=== PATIENT | female | born 1955 | race African-American/Black ===

== ENCOUNTER 2016-12-07 19:51 | Emergency (ER) ==
[2016-12-07] MEDS ORDERED: TYLENOL PO ONE (20:27)
[2016-12-07] MEDS ORDERED: BICILLIN L-A IM ONE (21:06)
[2016-12-07] MEDS ORDERED: TYLENOL WITH CODEINE #3 PO ONE (21:06)
--- NOTE | 2016-12-07 21:10 | PROVIDER DOCUMENTATION ---
HPI-General Adult - General Chief Complaint: Sore Throat Stated Complaint: SORTE THROAT Time Seen by Provider: 12/07/16 21:01 Source: patient Allergies/Adverse Reactions: Patient Allergies Allergy/AdvReac Type Severity Reaction Status Date / Time No Known Allergies Allergy Verified 09/08/16 19:23 Home Medications: Home Medication List Medication Instructions Recorded Confirmed Last Taken Type Fluticasone/Salmeterol [Advair 1 puff INH BID 11/19/15 09/08/16 09/08/16 09:00 History 500-50 Diskus] Furosemide [Lasix] 40 mg PO DAILY 11/19/15 09/08/16 09/08/16 08:00 History Levothyroxine [Synthroid] 100 microgm PO DAILY #0 tablet 12/02/15 09/08/1609/08 08:00 Rx Metformin [Glucophage] 500 mg PO BID CC #180 tablet 12/02/15 09/08/16 09/08/16 08:00 Rx Clonidine HCl 0.1 mg PO TID PRN #30 tablet 09/08/16 Unknown Rx - History of Present Illness -Gen Adult Nature of Presenting Problems: 61 Y/O F presents to ED with a Sore throat. Pt states that she's had an onset of fever, cough, and throat pain yesterday. Location of Pain/Injury: reports: mouth Pain Radiation: reports: no radiation Quality of Pain: reports: aching Severity: reports: moderate Onset/Duration: reports: 24 hours ago Timing: reports: still present Context/Activities at Onset: reports: none Associated Symptoms: reports: cough, fever/chills. denies: nausea, vomiting Review of Systems - Adult - REVIEW OF SYSTEMS - ADULT Constitutional: reports: fever. denies: chills Eyes: reports: no symptoms reported Ears, Nose, Mouth & Throat: reports: throat pain Cardiovascular: denies: chest pain Respiratory: reports: cough. denies: shortness of breath Gastrointestinal: denies: abdominal pain, diarrhea, nausea, vomiting Genitourinary: reports: no symptoms reported Musculoskeletal: reports: no symptoms reported Integumentary: reports: no symptoms reported Neurological: reports: no symptoms reported Psychiatric: reports: no symptoms reported Endocrine: reports: no symptoms reported Hematologic/Lymphatic: reports: no symptoms reported Allergic/Immunologic: reports: no symptoms reported All Other Systems: Reviewed and Negative Past History - Adult - PAST MEDICAL HISTORY-ADULT Review of Records: reports: Old Records Reviewed, Nursing Assessment Review, Medications Reviewed, Social history reviewed & non-contributory. Cardiovascular: reports: HTN Respiratory: reports: asthma Musculoskeletal: reports: arthritis Endocrine/Immune: reports: thyroid disorder (hypo) - PRIOR SURGERIES/PROCEDURES Surgical/Procedure History: reports: hernia repair, orthopedic (extremity) ( rigth wrist) - IMMUNIZATION STATUS Childhood Immunizations: See Nurse Assessment Flu Vaccine: See Nurse Assessment - SOCIAL HISTORY Smoking: non-smoker Substance Use: none/never Alcohol Use Frequency: never Living Situation: family Physical Exam-General - PHYSICAL EXAM-ADULT Initial Vital Signs Reviewed: Yes - CONSTITUTIONAL General Appearance: appears well, alert, no apparent distress - EYES Eyes: PERRL/EOMI, pink conjunctivae, fundi clear, no AV nicking - HEAD, EARS, NOSE, MOUTH & THROAT HENMT: normocephalic/atraumatic, moist mucous membranes, TMs normal, pharyngeal erythema. negative: tonsillar exudate - NECK Neck: non-tender, full range of motion, supple, normal inspection - RESPIRATORY Respiratory: chest non-tender, lungs clear, normal breath sounds - CARDIOVASCULAR Cardiovascular: normal peripheral pulses, regular rate, rhythm - GASTROINTESTINAL (ABDOMEN) Abdominal Exam: normal bowel sounds, non tender, soft - LYMPHATIC Lymphatic: no adenopathy - MUSCULOSKELETAL Back Exam: normal inspection, no CVA tenderness, no vertebral tenderness Extremity: normal range of motion, non-tender, normal gait - SKIN Integumentary: normal color, normal turgor, warm/dry - NEUROLOGIC Neurologic: ball ender II-XII nml as tested - PSYCHIATRIC Psych/Mental Status: normal mood/affect, normal thought content, normal thought process, oriented x 3 Progress - PLAN OF CARE/RESULTS Progress/Plan/Lab Results: Laboratory Tests 12/07/16 12/07/16 20:30 20:30 Influenza A (Rapid) NEGATIVE Influenza B (Rapid) NEGATIVE Group A Strep Rapid POSITIVE A Orders Category Date Time Status DIRECT [DIRECT STREP PL] Stat Lab 12/07/16 20:30 Completed Flu [INFLUENZA SCREEN PL] Stat Lab 12/07/16 20:30 Completed Acetaminophen [Tylenol] Med 12/07/16 20:27 Discontinued 1,000 mg PO NOW ONE Acetaminophen with Codeine [Tylenol with Codeine #3] Med 12/07/16 21:06 Discontinued 1 each PO NOW ONE Penicillin G Benzathine [Bicillin l-A] Med 12/07/16 21:06 Discontinued 1,200,000 unit IM NOW ONE Vital Signs - 24 hr 12/07/16 20:21 Temperature 101.8 F H Pulse Rate 104 H Respiratory 20 Rate Blood Pressure 106/85 O2 Sat by Pulse 97 Oximetry Departure - Departure Time of Disposition Order: 21:08 DIAGNOSIS: Strep pharyngitis Disposition: HOME 01 Certified Medical Emergency: Emergent Condition: Stable Additional Instructions: ED Follow Up Instructions: You have been treated by a care provider in the Emergency Department. These instructions are being provided to you so you can have an understanding of how to care for yourself upon discharge. Upon discharge from the Emergency Department, you are responsible for making arrangements for follow-up care by a physician of your choice. Take all prescribed medications as directed. Return to the Emergency Department immediately for any new or worsening symptoms. You may call the Physician Referral phone number at [phone] to obtain a list of Physicians who are taking new patients. Attestation - Scribe Verification/Attestation Scribe:: Mena Bautista Acting as Scribe for:: Narciso Springer Scribe documention review:: This chart was documented by a scribe and accurately reflects the service the provider performed and the decisions made by the provider.
[2016-12-07 21:20] VITALS: BP 98/53
== END 2016-12-07 21:25 | disposition home or self-care (01) ==
LOC: P.ED 19:51
DX: J02.0 Streptococcal pharyngitis (principal); R50.9 Fever, unspecified; R05 Cough; I10 Essential (primary) hypertension; M19.90 Unspecified osteoarthritis, unspecified site; J45.909 Unspecified asthma, uncomplicated; E03.9 Hypothyroidism, unspecified; Z79.51 Long term (current) use of inhaled steroids; Z79.899 Other long term (current) drug therapy
CPT/HCPCS: 87430; 87804; J0561

== ENCOUNTER 2019-06-19 05:08 | Day surgery (SDC) ==
[2019-06-14 10:45] LABS: HEMATOCRIT 35.6 % (37.0-47.0); HEMOGLOBIN 11.8 g/dL (12.0-16.0); MCH 30.1 PG (27-31); MCHC 33.1 g/dL (33-37); MCV 90.8 FL (81-99); RBC 3.92 XMIL (4.2-5.4); RDW 13.1 % (11.5-14.5); WBC 6.59 X1000 (4.8-10.8)
[2019-06-14 10:46] LABS: BASO# 0.02 X1000 (0.0-0.2); BASO% 0.3 % (0.0-0.8); EOS# 0.09 X1000 (0.0-0.7); EOS% 1.4 % (0.0-10.0); LYMPH# 2.17 X1000 (1.2-3.4); LYMPH% 32.9 % (20.5-51.1); MONO% 4.6 % (1.7-9.3); MPV 9.8 FL (7.4-10.4); NEUT# 4.01 X1000 (1.4-6.5); NEUT% 60.8 % (42.2-75.2); PLT 316 X1000 (130-400)
[2019-06-14 11:08] LABS: AGAP 14; BUN 37 mg/dL (8-22); CALCIUM 9.9 mg/dL (8.8-10.2); CHLORIDE 96 mmol/L (98-107); COSMO 288; CREATININE 0.9 mg/dL (0.5-0.9); ESTIMATED GFR > 60; GLUCOSE 96 mg/dL (70-104); POTASSIUM 3.9 mmol/L (3.5-5.1); SODIUM 140 mmol/L (136-145); TCO2 30 mmol/L (25-35)
[2019-06-19] MEDS ORDERED: PEPCID ONE (06:23)
[2019-06-19] MEDS ORDERED: KEFZOL 1 GM/D5W 1 GM/50 ML IVPB ONE (06:24)
[2019-06-19] MEDS ORDERED: LR 1,000 ML ONE (06:24)
[2019-06-19] MEDS ORDERED: DIPRIVAN 1% ONE (07:36)
[2019-06-19] MEDS ORDERED: VERSED ONE (07:36)
[2019-06-19] MEDS ORDERED: FENTANYL ONE (07:36)
[2019-06-19] MEDS ORDERED: XYLOCAINE-MPF 2% ONE (07:36)
[2019-06-19] MEDS ORDERED: ZOFRAN ONE (07:36)
[2019-06-19] MEDS ORDERED: ROBINUL ONE (07:36)
[2019-06-19] MEDS ORDERED: DECADRON ONE (07:36)
[2019-06-19] MEDS ORDERED: METHYLENE BLUE 0.5% ONE (08:14)
[2019-06-19] MEDS ORDERED: DILAUDID ONE (10:22)
[2019-06-19] MEDS ORDERED: NORCO-10 ONE (10:49)
[2019-06-19] MEDS ORDERED: MORPHINE IV PRN (11:56)
[2019-06-19] MEDS ORDERED: PHENERGAN IM PRN (12:00)
[2019-06-19] MEDS ORDERED: NORCO-10 PO PRN (12:00)
[2019-06-19] MEDS: TORADOL IV SCH ×2 (12:22→21:02)
--- NOTE | 2019-06-19 14:44 | OPERATIVE NOTE ---
PROCEDURE DATE: 06/19/2019 PREOPERATIVE DIAGNOSIS: Multifocal right breast cancer, upper outer quadrant. POSTOPERATIVE DIAGNOSIS: Multifocal right breast cancer, upper outer quadrant. PRINCIPAL PROCEDURE: Right modified radical mastectomy. SURGEON: Asiya Damon M.D. ANESTHESIA: General. ESTIMATED BLOOD LOSS: 75 mL. DRAINS: Two #10 flat Riky-Mackey drains, one within the right axilla, and one under the flaps, right chest. INDICATIONS: Ms. Elizabeth Shields is a 63-year-old, morbidly obese, black female, patient of Dr. Fam Rodriguez and Andre. She was diagnosed with a large multifocal upper outer quadrant right breast cancer in December of this year. She was initially treated with neoadjuvant chemotherapy, and now presents for surgery after good response from her chemotherapy. We have chosen a mastectomy with sentinel lymph node biopsy. FINDINGS: We did a complete right breast mastectomy. We preserved her Port-A-Cath in the upper medial right chest. We used blue dye, and she was injected by Nuclear Medicine for identification of sentinel lymph node, but there were very little counts in the right axilla, so we performed a right modified radical mastectomy. There were no palpable abnormal lymph nodes in the right axilla. DESCRIPTION OF PROCEDURE: The patient was brought to the operating room, placed supine, received general anesthesia, was intubated. I injected 10 mL of periareolar blue dye for identification of her sentinel lymph node. She had already been injected by Nuclear Medicine early this morning. I marked an elliptical incision, encompassing her right breast. It was oriented transversely. I used a marking pen to china my incision, and then made my incision with a 10 blade scalpel. Cautery was used to transect the dermis in the soft tissue. I created my superior flap to the right clavicle, preserving the port which was in the medial subcutaneous tissue of the right chest and out of the breast tissue. Once that was completed, I completed my medial dissection to the sternum, and the inferior dissection to the inframammary fold. Then, I removed the breast from medial to lateral off the pectoralis and minor muscles, again using cautery, and also the small ligature. As we encountered bleeding, we controlled it with cautery or the LigaSure. I then used the Navigator to try to find a sentinel lymph node, but all counts in the right axilla were poor, and I could not find a lymph node stained blue. We therefore performed a right axillary lymph node dissection. We identified our margins, the axillary vein superiorly, the latissimus dorsi laterally, and the chest wall medially. We preserved the long thoracic and thoracodorsal nerves, and dissected the soft tissue between these nerves with the axillary contents. Again, I did most of the dissection with cautery and the LigaSure. The right breast and the axillary contents were sent as a single specimen to the pathologist. We thoroughly irrigated out the wound. The irrigation was removed with suction, and any bleeding was controlled using the cautery. I placed two drains. They were 10 flat Riky-Mackey drains, one under the flaps pectoralis major muscle, and then one in the right axilla. They were brought out through separate stab incisions, and they were secured with stitches to the skin at their exit site. I then took time to close this long incision. I closed it in layers. The subcutaneous tissue was closed with interrupted 3-0 Vicryl stitches, and then I closed the skin with a skin clip analytics manager. She tolerated these procedures well. Dressings were applied. The OBED drains were hooked to bulb suction, and she will go to the recovery room, and plan to be hospitalized overnight. cc: Asiya Damon MD [facility]
[2019-06-19] MEDS ORDERED: VENTOLIN HFA INH PRN (20:14)
[2019-06-19] MEDS ORDERED: ADVAIR 500/50 DISKUS INH PRN (20:14)
[2019-06-19] MEDS: PERIDEX MT SCH (21:02)
[2019-06-20] MEDS: TORADOL IV SCH (06:06)
[2019-06-20] MEDS ORDERED: SYNTHROID PO SCH (07:00)
[2019-06-20] MEDS: PERIDEX MT SCH (08:48)
[2019-06-20] MEDS ORDERED: LASIX PO SCH (09:00)
[2019-06-20] MEDS ORDERED: KLOR-CON PO SCH (09:00)
[2019-06-20] MEDS ORDERED: HYZAAR 100/12.5 MG TAB PO SCH (09:00)
[2019-06-20 11:37] VITALS: BP 144/61
--- NOTE | 2019-06-20 12:55 | DISCHARGE SUMMARY ---
ADMISSION DATE: 06/19/2019 DISCHARGE DATE: 06/20/2019 ADMITTING DIAGNOSIS: Right breast cancer, multi focal. DISCHARGE DIAGNOSIS: Right breast cancer, multi focal. PRINCIPAL PROCEDURE: Right modified radical mastectomy on 06/19/2019. DISCHARGE DISABILITY: Full. DISCHARGE DIET: Regular. DISCHARGE DISPOSITION: She will see me in our outpatient offices this coming Wednesday for followup. DISCHARGE MEDICATIONS: She is to return to her home medications. HOSPITAL COURSE: Ms. Elizabeth Shields was admitted on the day of surgery through outpatient surgery. She went to the operating room, and underwent a right total mastectomy. Despite being injected prior to surgery by Nuclear Medicine and also me injecting right periareolar blue dye, we could not find a reliable deep right axillary sentinel lymph node so we did a right axillary dissection at the time of surgery. Two drains were left, one in the right axilla and one along the pectoralis major muscle under our skin flaps. She went to the recovery room and then to the [address] [place] [address] [place], and we felt that her postoperative convalescence has been normal. On postop day 1, she was ambulating in her room. She is eating a regular diet. The output from her drains were satisfactory, and she had no significant hematoma involving her mastectomy site. It was felt safe to discharge her home under the care of her daughter with followup in our outpatient offices this coming Wednesday for removal of her drains. cc: Asiya Damon MD
== END 2019-06-20 13:02 | disposition home or self-care (01) ==
LOC: 4N 05:08 → OPS 05:08 → PAT 05:08 → OPS 06-20 13:02
PROVIDERS: ATTEND Surgery